=== PATIENT | male | born 2005 | race Caucasian/White ===

== ENCOUNTER 2023-11-09 00:57 | Emergency (ER) | payer BC ==
[~2023-11-09] VITALS: Ht 175.3 cm; Wt 72.6 kg
[2023-11-09 01:24] VITALS: BP_SYST 123; PULSE 79; RESP 16; TEMP 97.9; O2SAT 99
[2023-11-09 02:17] VITALS: BP_SYST 122; PULSE 72; RESP 16; TEMP 98.3; O2SAT 99
== END 2023-11-09 02:17 | disposition home or self-care (01) ==
LOC: SED 00:57
DX: S61.012A Laceration without foreign body of left thumb without damage to nail, initial encounter (principal); J45.909 Unspecified asthma, uncomplicated; Z79.899 Other long term (current) drug therapy; W26.0XXA Contact with knife, initial encounter; Y93.G3 Activity, cooking and baking; Y92.89 Other specified places as the place of occurrence of the external cause; Y99.8 Other external cause status
CPT/HCPCS: 99282